=== PATIENT | female | born 2000 | race Hispanic/Latino ===

== ENCOUNTER 2018-08-09 23:50 | Emergency (ER) | payer OTHER ==
--- NOTE | 2018-08-10 00:26 | ER ---
Nurse's Notes [facility] Name: Gerda Posadas Age: 18 yrs Sex: Female : 2000 Arrival Date: 08/09/2018 Time: 23:50 Bed 15 Private MD: Diagnosis: Jaw pain;Dislocation of jaw Presentation: 08/10 00:15 Presenting complaint: Father states: "We were driving home and her jaw popped out of lp1 place"; States hx of jaw dislocation; airway patent, denies pain. Transition of care: patient was not received from another setting of care. Onset of symptoms was August 09, 2018 at 23:45. Risk Assessment: Do you want to hurt yourself or someone else? Patient reports no desire to harm self or others. Initial Sepsis Screen: Does the patient meet any 2 criteria? No. Patient's initial sepsis screen is negative. Does the patient have a suspected source of infection? No. Patient's initial sepsis screen is negative. Care prior to arrival: None. 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 - Family history:: not pertinent. - Social history:: Smoking status: Patient/guardian denies using tobacco. - Ebola Screening: : No symptoms or risks identified at this time. Screenin:20 Abuse screen: Denies threats or abuse. Denies injuries from another. Nutritional lp1 screening: No deficits noted. Tuberculosis screening: No symptoms or risk factors identified. Fall Risk None identified. Assessment: 00:15 General: Appears in no apparent distress. Behavior is appropriate for age. Pain: Denies lp1 pain. Neuro: Level of Consciousness is awake, alert, obeys commands. Cardiovascular: No deficits noted. Respiratory: Airway is patent Respiratory effort is even, unlabored. GI: No deficits noted. : No deficits noted. EENT: Jaw deformity noted; patient unable to close mouth. Derm: Skin is pink, warm \\T\\ dry. Musculoskeletal: No deficits noted. 00:23 Reassessment: Dr. Varela at bedside, manual manipulation of jaw. lp1 Vital Signs: 00:19 BP 136 / 83; Pulse 72; Resp 16; Temp 97(TE); Pulse Ox 99% on R/A; Weight 77.11 kg; lp1 Height 5 ft. 9 in. (175.26 cm); Pain 0/10; 00:19 Body Mass Index 25.10 (77.11 kg, 175.26 cm) lp1 Sreedhar Coma Score: 00:18 Eye Response: spontaneous(4). Verbal Response: oriented(5). Motor Response: obeys nury commands(6). Total: 15. ED Course: 08/09 23:50 Patient arrived in ED. ds1 08/10 00:08 Nigel Varela MD is Attending Physician. [facility] 00:18 Triage completed. lp1 00:18 Arm band placed on left wrist. lp1 00:23 Patient has correct armband on for positive identification. lp1 00:24 No provider procedures requiring assistance completed. Patient did not have IV access lp1 during this emergency room visit. 00:25 Geneva Morales, RN is Primary Nurse. lp1 Administered Medications: No medications were administered Outcome: 00:26 Discharge ordered by . [facility] 00:29 Discharged to home ambulatory, with family. lp1 00:29 Condition: good 00:29 Discharge instructions given to patient, family, Instructed on discharge instructions, follow up and referral plans. medication usage, Demonstrated understanding of instructions, follow-up care, medications, Prescriptions given X 1. 00:29 Patient left the ED. lp1 Signatures: Nigel Varela MD MD cha Sanford, Demi ds1 Geneva Morales, RN RN lp1
--- NOTE | 2018-08-10 00:26 | EDPHYS ---
Physician Documentation [facility] Name: Gerda Posadas Age: 18 yrs Sex: Female : 2000 Arrival Date: 08/09/2018 Time: 23:50 Bed 15 Private MD: ED Physician Nigel Varela HPI: 08/10 00:18 This 18 yrs old Female presents to ER via Unassigned with complaints of Jaw nury Dislocation. 00:18 The patient or guardian reports pain, jaw dislocation, recurrent. The complaints affect nury the right jaw and left jaw. Context of injury: The problem was sustained at home. Onset: The symptoms/episode began/occurred just prior to arrival. Associated signs and symptoms: The patient has no apparent associated signs or symptoms. Severity of symptoms: At their worst the symptoms were moderate, in the emergency department the symptoms are unchanged. The patient has experienced similar episodes in the past, several times. 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 - Family history:: not pertinent. - Social history:: Smoking status: Patient/guardian denies using tobacco. - Ebola Screening: : No symptoms or risks identified at this time. ROS: 00:18 Constitutional: Negative for fever, chills, and weight loss, Eyes: Negative for injury, nury pain, redness, and discharge, Neck: Negative for injury, pain, and swelling, Cardiovascular: Negative for chest pain, palpitations, and edema, Respiratory: Negative for shortness of breath, cough, wheezing, and pleuritic chest pain, Abdomen/GI: Negative for abdominal pain, nausea, vomiting, diarrhea, and constipation, Back: Negative for injury and pain, : Negative for injury, bleeding, discharge, and swelling, MS/Extremity: Negative for injury and deformity, Skin: Negative for injury, rash, and discoloration, Neuro: Negative for headache, weakness, numbness, tingling, and seizure. 00:18 ENT: Positive for Teeth pain jaw dislocation. Exam: 00:18 Constitutional: This is a well developed, well nourished patient who is awake, alert, nury and in no acute distress. Head/Face: Normocephalic, atraumatic. Eyes: Pupils equal round and reactive to light, extra-ocular motions intact. Lids and lashes normal. Conjunctiva and sclera are non-icteric and not injected. Cornea within normal limits. Periorbital areas with no swelling, redness, or edema. Neck: Trachea midline, no thyromegaly or masses palpated, and no cervical lymphadenopathy. Supple, full range of motion without nuchal rigidity, or vertebral point tenderness. No Meningismus. Chest/axilla: Normal chest wall appearance and motion. Nontender with no deformity. No lesions are appreciated. Cardiovascular: Regular rate and rhythm with a normal S1 and S2. No gallops, murmurs, or rubs. Normal PMI, no JVD. No pulse deficits. Respiratory: Lungs have equal breath sounds bilaterally, clear to auscultation and percussion. No rales, rhonchi or wheezes noted. No increased work of breathing, no retractions or nasal flaring. Back: No spinal tenderness. No costovertebral tenderness. Full range of motion. Skin: Warm, dry with normal turgor. Normal color with no rashes, no lesions, and no evidence of cellulitis. MS/ Extremity: Pulses equal, no cyanosis. Neurovascular intact. Full, normal range of motion. Neuro: Awake and alert, GCS 15, oriented to person, place, time, and situation. Cranial nerves II-XII grossly intact. Motor strength 5/5 in all extremities. Sensory grossly intact. Cerebellar exam normal. Normal gait. Psych: Awake, alert, with orientation to person, place and time. Behavior, mood, and affect are within normal limits. 00:18 ENT: Dental exam: pain, jaw dislocation, recurrent, reduced. Vital Signs: 00:19 BP 136 / 83; Pulse 72; Resp 16; Temp 97(TE); Pulse Ox 99% on R/A; Weight 77.11 kg; lp1 Height 5 ft. 9 in. (175.26 cm); Pain 0/10; 00:19 Body Mass Index 25.10 (77.11 kg, 175.26 cm) lp1 [place] Coma Score: 00:18 Eye Response: spontaneous(4). Verbal Response: oriented(5). Motor Response: obeys [facility] commands(6). Total: 15. Procedures: 00:23 Reduction: Patient tolerated well. jaw reduced with manipulation. [facility] MDM: 00:08 Patient medically screened. [facility] 00:23 Data reviewed: vital signs, nurses notes. [facility] Administered Medications: No medications were administered Disposition: 08/10/18 00:26 Discharged to Home. Impression: Jaw pain, Dislocation of jaw. - Condition is Stable. - Discharge Instructions: Jaw Dislocation, Jaw Dislocation, [id number]. - Prescriptions for Tylenol- Codeine #3 300-30 mg Oral Tablet - take 2 tablets by ORAL route every 6 hours As needed; 20 tablet. - Medication Reconciliation Form, Thank You Letter, Antibiotic Education, Prescription Opioid Use form. - Follow up: Private Physician; When: 2 - 3 days; Reason: Recheck today's complaints, Continuance of care, Re-evaluation by your physician. - Problem is new. - Symptoms have improved. Signatures: Nigel Varela MD MD cha Pena, Laura RN RN lp1 Corrections: (The following items were deleted from the chart) 00:29 00:26 08/10/2018 00:26 Discharged to Home. Impression: Jaw pain; Dislocation of jaw. lp1 Condition is Stable. Forms are Medication Reconciliation Form, Thank You Letter, Antibiotic Education, Prescription Opioid Use. Follow up: Private Physician; When: 2 - 3 days; Reason: Recheck today's complaints, Continuance of care, Re-evaluation by your physician. Problem is new. Symptoms have improved. [facility]
== END 2018-08-10 00:29 | disposition home or self-care (01) ==
LOC: ER 23:50
PROC: 0RSDXZZ Reposition Left Temporomandibular Joint, External Approach (ICD-10-PCS; principal; 2018-08-10)
PROC: 0RSCXZZ Reposition Right Temporomandibular Joint, External Approach (ICD-10-PCS; 2018-08-10)
DX: S03.03XA Dislocation of jaw, bilateral, initial encounter (principal); X58.XXXA Exposure to other specified factors, initial encounter; Y93.9 Activity, unspecified; Y92.009 Unspecified place in unspecified non-institutional (private) residence as the place of occurrence of the external cause
CPT/HCPCS: 99282